=== PATIENT | female | born 1960 | race Caucasian/White ===

== ENCOUNTER 2020-11-19 08:03 | Outpatient (CLI) | payer OTHER, SELFPAY ==
--- NOTE | ~2020-11-19 | XR_ITS ---
EXAMINATION: XR chest 2V DATE: 11/19/2020 08:26 INDICATION: Epigastric abdominal pain. TECHNIQUE: Frontal and lateral views of the chest were obtained. COMPARISON: None. FINDINGS: Calcified pulmonary nodules are consistent with old granulomatous disease. No pleural effus ion or pneumothorax. The heart size is normal. IMPRESSION: 1. No acute cardiopulmonary disease. Reviewed, dictated and finalized at location A.
== END 2020-11-19 08:04 | disposition home or self-care (01) ==
PROVIDERS: PCP Family Medicine; Visit Provider Physician Assistant
DX: R10.13 Epigastric pain (principal); R10.9 Unspecified abdominal pain
CPT/HCPCS: 71046

== ENCOUNTER 2020-11-25 07:11 | Outpatient (CLI) | payer OTHER, SELFPAY ==
--- NOTE | ~2020-11-25 | US_ITS ---
US abdomen complete DATE: 11/25/2020 07:50 INDICATION: Epigastric abdominal pain. Gastroesophageal reflux. TECHNIQUE: Real-time imaging and Doppler analysis COMPARISON: None FINDINGS: No gallstones are evident. No gallbladder wall thickening. Negative sonographic Vang's si gn. No hepatic space-occupying mass lesion is evident. Normal hepatopedal portal venous flow direction. The pancreas is obscured. No renal mass lesion or hydronephrosis. The right kidney measures approximately 12.6 cm length, left kidney 13 cm. There is suggestion of an approximately 9 mm left renal calculus. Consider noncontrast CT abdomen examination for confirmation. Normal splenic size. Normal caliber of the abdominal aorta. Inferior vena cava is patent. IMPRESSION: Probable left renal calculus; consider noncontrast CT abdomen examination for confirmatio n The pancreas is obscured by bowel gas and not evaluated. Otherwise unremarkable examination Reviewed, dictated and finalized at Location A. Reviewed, dictated and finalized at location A. IMPRESSION: Probable left renal calculus; consider noncontrast CT abdomen exami [facility] for confirmation The pancreas is obscured by bowel gas and not evaluated. Otherwise unremarkable examination
== END 2020-11-25 07:12 | disposition home or self-care (01) ==
PROVIDERS: PCP Family Medicine; Visit Provider Physician Assistant
DX: R10.13 Epigastric pain (principal); K21.9 Gastro-esophageal reflux disease without esophagitis
CPT/HCPCS: 76700

== ENCOUNTER → 2021-10-08 13:41 | Outpatient (CLI) | payer OTHER, SELFPAY ==
--- NOTE | ~2021-10-08 | MM_ITS ---
EXAMINATION: MM screening [facility] w terell HISTORY: Screening mammogram, family history of breast cancer in her sister. TECHNIQUE: Craniocaudal and mediolateral oblique 3-D tomosynthesis images were obtained and synthetic 2-D images were generated. CAD analysis was submitted and interpreted. COMPARISON: 04/24/2018 BREAST PARENCHYMAL COMPOSITION: There are scattered areas of fibroglandular density. FINDINGS: Scattered benign-appearing calcifications are present. There is no evidence of suspicious m ass, calcification, or architectural distortion to suggest malignancy in either breast. There has bee n no suspicious interval change. IMPRESSION: 1. No mammographic evidence of malignancy. 2. Recommend routine screening mammography in one year. BI-RADS Category 2: Benign finding(s). Reviewed, dictated and finalized at location A. THCARE PROJECT MANAGER
== END ==
PROVIDERS: PCP Family Medicine; Visit Provider Family Medicine
DX: Z12.31 Encounter for screening mammogram for malignant neoplasm of breast (principal)
CPT/HCPCS: 77063; 77067

== ENCOUNTER → 2023-04-07 10:05 | Outpatient (CLI) | payer OTHER, SELFPAY ==
--- NOTE | ~2023-04-07 | MM_ITS ---
EXAMINATION: MM screening [facility] w terell HISTORY: Screening mammogram, family history of breast cancer in her sister. TECHNIQUE: Craniocaudal and mediolateral oblique 3-D tomosynthesis images were obtained and synthetic 2-D images were generated. CAD analysis was submitted and interpreted. COMPARISON: 10/08/2021, 04/24/2018 BREAST PARENCHYMAL COMPOSITION: There are scattered areas of fibroglandular density. FINDINGS: Scattered benign-appearing calcifications are present. No suspicious mass, calcification, o r architectural distortion are identified in either breast to suggest malignancy. There has been no s uspicious interval change. IMPRESSION: 1. No mammographic evidence of malignancy. 2. Recommend routine screening mammography in one year. BI-RADS Category 2: Benign finding(s). Reviewed, dictated and finalized at location B.
== END ==
PROVIDERS: PCP Nurse Practitioner Gerontology; Visit Provider Nurse Practitioner Gerontology
DX: Z12.31 Encounter for screening mammogram for malignant neoplasm of breast (principal)
CPT/HCPCS: 77063; 77067

== ENCOUNTER 2023-04-21 07:29 | Outpatient (CLI) | payer OTHER, SELFPAY ==
--- NOTE | 2023-04-21 07:48 | ECHO_ITS ---
Patient Info Name: Emmy Kee Age: 62 years : 1960 Gender: Female Ht: 63 in Wt: 195 lbs BSA: 2.02 m2 HR: 50 bpm BP: 160 / 77 mmHg Technical Quality: Fair Exam Date: 04/21/2023 7:57 AM Exam Location: [facility] Patient Status: Outpatient Admit Date: 04/21/2023 Staff Ordering Physician: Lewis Saucedo DO Dye Boarding Machine Operator: Jammie Garcia RDCS Attending Provider: Lewis Saucedo DO Referring Physician: Lewis KNAPP; Exam Type: CA echo doppler color flow Study Info Indications I35.0 - Nonrheumatic aortic (valve) stenosis Complete two-dimensional, color flow and Doppler transthoracic echocardiogram is performed. Summary 1. Complete two-dimensional, color flow and Doppler transthoracic echocardiogram is performed. 2. Left ventricular chamber dimension is normal. 3. Left ventricular systolic function is normal, estimated at 60-65%. 4. The left ventricular diastolic function is grade I diastolic dysfunction. 5. E/e' 14 is mildly elevated. 6. Global longitudinal strain is normal at -19.3%. 7. Left atrial chamber dimension is moderately enlarged. 8. Right atrial chamber dimension is mildly enlarged. 9. There is mild aortic valve sclerosis. 10. There is mild mitral valve regurgitation. 11. There is mild tricuspid valve regurgitation. 12. No pulmonary hypertension, estimated pulmonary arterial systolic pressure is 30 mmHg. Left Ventricle E/e' 14 is mildly elevated. Global longitudinal strain is normal at -19.3%. Left ventricular chamber dimension is normal. Left ventricular systolic function is normal, estimated at 60-65%. The left ventricular diastolic function is grade I diastolic dysfunction. Right Ventricle Right ventricular systolic function is normal and with normal TAPSE 3.9 cm. Right ventricular chamber dimension is normal. Left Atria Left atrial chamber dimension is moderately enlarged. Right Atria Right atrial chamber dimension is mildly enlarged. Aortic Valve The aortic valve is trileaflet. There is mild aortic valve sclerosis. There is no aortic valve stenosis. There is no aortic valve regurgitation. Pulmonic Valve There is no pulmonic regurgitation. Mitral Valve There is no mitral valve stenosis. There is mild mitral valve regurgitation. Tricuspid Valve There is mild tricuspid valve regurgitation. No pulmonary hypertension, estimated pulmonary arterial systolic pressure is 30 mmHg. Pericardium/Pleural There is no pericardial effusion. Inferior Vena Cava Normal inferior vena cava with >50% collapse upon inspiration consistent with normal right atrial pressure, 5 mmHg. Aorta The aortic root size at the sinus of Valsalva is normal. Left Ventricular Outflow Tract Name Value Normal LVOT 2D LVOT Diameter 2.0 cm LVOT Doppler LVOT Peak Gradient 6 mmHg LVOT Mean Gradient 4 mmHg LVOT VTI 33 cm LVOT VTI/AV VTI Ratio 0.7 LVOT Stroke Volume 103 ml LVOT CO 4.5 l/min LVOT CI 2.2 l/min/m2 Pulmonic Valve
== END 2023-04-21 07:30 | disposition home or self-care (01) ==
PROVIDERS: PCP Nurse Practitioner Gerontology; Visit Provider Internal Medicine Cardiovascular Disease
DX: I35.1 Nonrheumatic aortic (valve) insufficiency (principal); I36.1 Nonrheumatic tricuspid (valve) insufficiency; I34.0 Nonrheumatic mitral (valve) insufficiency
CPT/HCPCS: 93306

== ENCOUNTER 2024-04-16 13:09 | Outpatient (CLI) | payer OTHER, SELFPAY ==
--- NOTE | 2024-04-16 13:21 | ECHO_ITS ---
Patient Info Name: Emmy Kee Age: 63 years : 1960 Gender: Female Ht: 63 in Wt: 210 lbs BSA: 2.10 m2 HR: 55 bpm BP: 135 / 71 mmHg Technical Quality: Fair Exam Date: 04/16/2024 1:45 PM Exam Location: Echo Lab Patient Status: Outpatient Admit Date: 04/16/2024 Staff Ordering Physician: Lewis Saucedo DO Oil Filters Inspector: Jammie Garcia RDCS Attending Provider: Lewis Saucedo DO Referring Physician: Lewis KNAPP; Exam Type: CA echo doppler color flow Study Info Indications I35.0 - Nonrheumatic aortic (valve) stenosis Complete two-dimensional, color flow and Doppler transthoracic echocardiogram is performed. Strain analysis performed. Summary 1. Complete two-dimensional, color flow and Doppler transthoracic echocardiogram is performed. 2. Left ventricular chamber dimension is normal. 3. Left ventricular systolic function is normal, estimated at 65-70%. 4. The left ventricular diastolic function is grade I diastolic dysfunction. 5. E/e' 9 is minimally elevated. 6. Global longitudinal strain is normal at -19.5%. 7. Left atrial chamber dimension is moderately enlarged. 8. There is mild aortic valve sclerosis. 9. There is mild tricuspid valve regurgitation. 10. No pulmonary hypertension, estimated pulmonary arterial systolic pressure is 37 mmHg. Left Ventricle E/e' 9 is minimally elevated. Global longitudinal strain is normal at -19.5%. Left ventricular chamber dimension is normal. Left ventricular systolic function is normal, estimated at 65-70%. The left ventricular diastolic function is grade I diastolic dysfunction. Right Ventricle Right ventricular systolic function is normal and with normal TAPSE 3.4 cm. Right ventricular chamber dimension is normal. Left Atria Left atrial chamber dimension is moderately enlarged. Right Atria Right atrial chamber dimension is normal. Aortic Valve The aortic valve is trileaflet. There is mild aortic valve sclerosis. There is no aortic valve stenosis. There is no aortic valve regurgitation. Pulmonic Valve There is no pulmonic regurgitation. Mitral Valve There is no mitral valve stenosis. There is no mitral valve regurgitation. Tricuspid Valve There is mild tricuspid valve regurgitation. No pulmonary hypertension, estimated pulmonary arterial systolic pressure is 37 mmHg. Pericardium/Pleural There is no pericardial effusion. Inferior Vena Cava Normal inferior vena cava with >50% collapse upon inspiration consistent with normal right atrial pressure, 5 mmHg. Aorta The aortic root size at the sinus of Valsalva is normal. Left Ventricular Outflow Tract Name Value Normal LVOT 2D LVOT Diameter 2.0 cm LVOT Doppler LVOT Peak Gradient 6 mmHg LVOT Mean Gradient 4 mmHg LVOT VTI 33 cm LVOT VTI/AV VTI Ratio 0.9 LVOT Stroke Volume 102 ml LVOT CO 5.4 l/min LVOT CI 2.6 l/min/m2 Pulmonic Valve Name Value Normal
== END 2024-04-16 13:10 | disposition home or self-care (01) ==
LOC: ANHCARD 13:13
PROVIDERS: PCP Family Medicine; Visit Provider Internal Medicine Cardiovascular Disease
DX: I35.0 Nonrheumatic aortic (valve) stenosis (principal); I36.1 Nonrheumatic tricuspid (valve) insufficiency
CPT/HCPCS: 93306

== ENCOUNTER 2024-08-02 10:33 | Outpatient (CLI) | payer OTHER, SELFPAY ==
--- NOTE | ~2024-08-02 | MM_ITS ---
EXAMINATION: MM screening [facility] BI w terell HISTORY: Screening TECHNIQUE: Craniocaudal and mediolateral oblique 3-D tomosynthesis images were obtained and synthetic 2-D images were generated. CAD analysis was submitted and interpreted. COMPARISON: 04/07/2023 and dating back to 04/24/2018 BREAST PARENCHYMAL COMPOSITION: There are scattered areas of fibroglandular density. FINDINGS: Punctate and bulky calcifications are detected bilaterally, stable and benign in appearance . Stable intramammary lymph node within the upper outer quadrant of right breast. Stable parenchymal pattern without suspicious microcalcifications, architectural distortion, discrete masses or significant asymmetry. IMPRESSION: 1. No mammographic evidence of malignancy. 2. Recommend routine screening mammography in one year. BI-RADS Category 2: Benign finding(s). Reviewed, dictated and finalized at location A. TRONIC DEVICE MONITOR
== END 2024-08-02 10:34 | disposition home or self-care (01) ==
LOC: MICIMG 10:33
PROVIDERS: PCP Family Medicine; Visit Provider Family Medicine
DX: Z12.31 Encounter for screening mammogram for malignant neoplasm of breast (principal)
CPT/HCPCS: 77063; 77067

== ENCOUNTER 2024-12-10 08:14 | Outpatient (CLI) | payer OTHER, SELFPAY ==
--- NOTE | 2024-12-11 18:07 | P.SLEEP_ITS ---
Sleep Study - Home Unattended Date of Study: 12/10/24 Ordering Provider: ANNMARIE Adams Interpreting Provider: Paige Bull MD Home Sleep Study Type: Watch PAT Height: 1.57 m Weight: 97.069 kg Body Mass Index: 39.1 Neck Circumference (inches): 15.5 [place]: 10 Reason for Sleep Study Non restorative sleep, daytime fatigue, known obstructive sleep apnea since 2005 * 08/18/2005, split night study, AHI 96.2, complete resolution of events on CPAP 20 cm Sleep History Emmy Kee is a 64-year-old female who was diagnosed with obstructive sleep apnea in 2005, well managed on CPAP 20 cm which was her initial pressure during the split night study. She was using her 2nd CPAP machine when it broke about 6 months ago so she has not been treated since then. She reports feeling tired during the day, and she does not feel refreshed on waking. She has an urge to fall asleep during the day, however she does not experience drowsy driving. She has loud snoring, and she has been told that she stops breathing while sleeping. She does not choke or gasp in her sleep but she does have difficulty breathing when she is on her back. She wakes with a sore throat and a dry mouth. She does not have nocturnal heartburn. She does not wake at night to urinate. She was previously diagnosed with severe obstructive sleep apnea in 2005 and she has hypertension. Although she is able to fall asleep, she has difficulty remaining asleep. She wakes up earlier in the morning than desired. She does not use any sleep aids. She does not feel anxious about her sleep. She denies muscle weakness with strong emotion, feeling paralyzed on falling asleep or upon awakening, she denies vivid dreamlike scenes upon waking or falling asleep and she does not dream during daytime naps. She does not grind her teeth or clench her jaws. She does not kick excessively at night or have uncomfortable restless feelings in her legs. She does not act out her dreams. Habits: Tobacco: never Caffein: 1-2 cups daily Alcohol: never Recreational substances: never PMFSH Past Medical History Medical History MVP (mitral valve prolapse) Mixed hyperlipidemia Hyperthyroidism Vitamin D deficiency SERA on CPAP Morbid (severe) obesity due to excess calories IFG (impaired fasting glucose) Ganglion cyst of finger of right hand Essential (primary) hypertension Dependence on other enabling machines and devices Acquired hypothyroidism Allergic rhinitis Obesity, morbid, BMI 40.0-49.9 Acid reflux Epigastric pain Eczema Breast cancer screening Alopecia Arthritis Hyperthyroidism Mixed hyperlipidemia Benign reactive hypertension Surgical History Surgical History H/O section Hx of total knee arthroplasty Family History Family History Sibling Family history of ulcerative colitis Family history of malignant neoplasm of breast Social History Social History Social History: Smoking status: Never smoker Second hand tobacco smoke exposure: No Alcohol intake: never Substance use: never Substance use type: does not use Do You Feel Safe in your Home?: Yes Lack of Transportation: No Lack of Food: Never True Current Housing: I Have Housing Concerned About Future Housing: No Difficulty Paying Gas/Electric Bills: No Difficulty Paying for Meds: No Currently Unemployed: No Education: Don't Know Difficulty w/ Childcare or Family Care: No Living arrangements: with family Additional living arrangements comments: pt son lives with her Occupation/Education: occupation 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 Gender identity (if verbalized by the patient): Female Sexual Orientation (if Verbalized by the Patient): Straight or Heterosexual Medications Home Medications ?Medication ?Instructions ?Recorded ?Confirmed ?Type aspirin 81 mg tablet,delayed 81 mg PO DAILY 09/17/19 11/15/24 History release (Adult Low Dose Aspirin) multivitamin 1 tablet PO DAILY 09/17/19 11/15/24 History azelastine 137 mcg (0.1 %) nasal 137 mcg (0.137 mL) intranasal Q12H 07/21/23 11/15/24 Rx spray #30 mL fluticasone propionate 50 1 spray intranasal BID #18 mL 07/21/23 11/15/24 Rx mcg/actuation nasal spray,suspension omeprazole 20 mg tablet,delayed 20 mg PO DAILY #90 tabs 02/16/24 11/15/24 Rx release amlodipine 5 mg tablet See Rx Instructions .Route 08/13/24 11/15/24 Rx .COMPLEX #90 tabs rosuvastatin 10 mg tablet See Rx Instructions .Route 09/10/24 11/15/24 Rx .COMPLEX #90 tabs clobetasol 0.05 % topical cream 1 applic topical DAILY #30 grams 11/15/24 11/15/24 Rx atenolol 50 mg tablet See Rx Instructions .Route 12/06/24 Rx .COMPLEX #90 tabs Sleep Procedure The sleep study was completed using [employer] Multi[employer] a technically adequate device with seven channels: peripheral arterial tone, actigraphy, body position, snore, respiratory movement, pulse oximetry, sleep staging, and heart rate. Prior to using the device, the patient received verbal and written instructions for its application and was provided with the help desk phone number for additional telephonic instruction with 24-hour availability of qualified personnel to answer questions. Sleep Architecture The total recording time is 8 hrs, 50 min. The total sleep time is 7 hrs, 2 min. Sleep latency is 18 minutes. REM latency is 149 minutes. The patient had 23 episodes of waking. Sleep architecture shows 8.1% deep sleep, 78.8% light sleep, and 13.2% stage REM. The patient spent 14.0% of total sleep time in the supine position. Sleep efficiency was 79%. Respiratory Analysis The overall AHI (pAHI 3%:) is 37.7. The overall apnea hypopnea index (pAHI 4%) is 17.7. The central AHI is 0.9. The AHI was 41.2 in NREM and 15.2 in REM sleep. The AHI was 52.2 in Supine and 35.5 in Non-supine sleep. Percent of [place] respirations is 0%. Oximetry Data The oxygen desaturation index (BREEZY 4%:) is 17.7. The mean saturation is 93%, and the lowest saturation is 85%. Time spent with saturation < 88% is 0.7 minutes. Snoring Profile Snoring average intensity is 49 dB. The patient snored above 45 decibels for 201.0 minutes, 47.6% of sleep time. Cardiac Profile The average pulse rate is 47 beats per minutes. The lowest pulse rate is 37 bpm. The highest pulse rate is 84 bpm. Cardiac Rhythm Analysis in Sleep did not show suspected atrial fibrillation. ( Assessment and Plan Assessment and Plan (1) SERA (obstructive sleep apnea): Code(s): G47.33 - Obstructive sleep apnea (adult) (pediatric) Status: Acute Assessment and Plan: This home sleep test using WatchPat on 12/10/2024 shows severe obstructive sleep apnea using a 3% criteria, AHI 37.7 and an apnea-hypopnea index of 17.7 which is moderately severe using a 4% desaturation criteria. She desaturated to 85%, spent 0.7 minutes below 88% and had loud frequent snoring during the night. This patient meets criteria to be treated for moderate to severe obstructive sleep apnea. She has a known history of this diagnosis since 2005 and indicates that she was on treatment with CPAP 20 cm until her machine broke 6 months ago. I recommend that this patient be prescribed Resmed AirSense 11 AutoPAP 5-15 cm H2 O, CPAP mask/filters/tubing and humidifier chamber. This should be used with all episodes of sleep. Compliance should be reviewed within 31-90 days of starting therapy for usage greater than 4 hours per night greater than 70% of the nights. The patient should be asked about symptoms such as excessive daytime sleepiness, quality of sleep, decreased nocturia, increased mental functioning such as me tash, mood, and concentration. If the patient does not improve with Auto-PAP, I recommend a full night titration in the sleep lab with a sleep aid to use, if needed, to initiate and maintain sleep during testing. Consider prescribing Ambien 5 mg to 10 mg or Lunesta 2 mg to 3 mg. The patient should not take a nap on the day of the study. BMI is 39. Weight management is advised. Clinical data suggests that weight loss of 10% can reduce the severity of respiratory events and snoring and improve AHI by as much as 25%. Data The data obtained during this sleep study is adequate for interpretation. Certification This sleep study has been reviewed by a board certified sleep medicine physician.
[2024-12-12 20:02] VITALS: BMI 39.1
== END 2024-12-11 14:26 | disposition home or self-care (01) ==
LOC: ANHCSM 08:16
PROVIDERS: PCP Family Medicine; Visit Provider Physician Assistant
DX: G47.33 Obstructive sleep apnea (adult) (pediatric) (principal)
CPT/HCPCS: 95800

== ENCOUNTER 2025-03-10 01:32 | Day surgery (SDC) | payer OTHER, SELFPAY ==
[2025-02-27 14:34] VITALS: BMI 39.1
--- NOTE | 2025-03-10 07:28 | WPDANESEPPF ---
Anes - Initial Pre Proc Eval Procedure: Operation Date: 03/10/25 09:30 Proposed Procedures p Screening Colonoscopy - Manuel Alfred MD Date/Time: 03/10/25 07:28 Surgeon: Manuel Alfred MD Pre Op Diagnosis: Screening Patient Data Age: 64 Gender: F Height: 1.57 m Weight: 97 kg Allergies Allergy/AdvReac Type Severity Reaction Status Date / Time No Known Allergies Allergy Verified 03/10/25 08:28 PERFUMES, CANDLES, STRONG Allergy Severe NASAL Uncoded 03/10/25 08:28 SMELLS CONGESTION, STUFFINESS Home Medications ?Medication ?Instructions ?Recorded ?Confirmed ?Type aspirin 81 mg tablet,delayed 81 mg PO DAILY 09/17/19 02/28/25 History release (Adult Low Dose Aspirin) multivitamin 1 tablet PO DAILY 09/17/19 02/28/25 History azelastine 137 mcg (0.1 %) nasal 137 mcg (0.137 mL) intranasal Q12H 07/21/23 02/28/25 Rx spray #30 mL fluticasone propionate 50 1 spray intranasal BID #18 mL 07/21/23 02/28/25 Rx mcg/actuation nasal spray,suspension omeprazole 20 mg tablet,delayed 20 mg PO DAILY #90 tabs 02/16/24 02/28/25 Rx release clobetasol 0.05 % topical cream 1 applic topical DAILY #30 grams 11/15/24 02/28/25 Rx atenolol 50 mg tablet See Rx Instructions .Route 12/06/24 03/10/25 Rx .COMPLEX #90 tabs amlodipine 5 mg tablet See Rx Instructions .Route 02/07/25 03/10/25 Rx .COMPLEX #90 tabs rosuvastatin 10 mg tablet See Rx Instructions .Route 03/04/25 03/10/25 Rx .COMPLEX #90 tabs Patient hx anesthesia problems: none Family hx anesthesia problems: none Results Review: All pre-operative results and documents have been reviewed as part of the pre-operative evaluation. [facility] Past Medical History Medical History MVP (mitral valve prolapse) Mixed hyperlipidemia Hyperthyroidism Vitamin D deficiency SERA on CPAP Morbid (severe) obesity due to excess calories IFG (impaired fasting glucose) Ganglion cyst of finger of right hand Essential (primary) hypertension Dependence on other enabling machines and devices Acquired hypothyroidism Allergic rhinitis Obesity, morbid, BMI 40.0-49.9 Acid reflux Epigastric pain Eczema Breast cancer screening Alopecia Arthritis Hyperthyroidism Mixed hyperlipidemia Benign reactive hypertension Surgical History Surgical History H/O section Hx of total knee arthroplasty Family History Family History Sibling Family history of ulcerative colitis Family history of malignant neoplasm of breast Social History Social History Social History: Smoking status: Never smoker Second hand tobacco smoke exposure: No Alcohol intake: never Substance use: never Substance use type: does not use Do You Feel Safe in your Home?: Yes Lack of Transportation: No Lack of Food: Never True Current Housing: I Have Housing Concerned About Future Housing: No Difficulty Paying Gas/Electric Bills: No Difficulty Paying for Meds: No Currently Unemployed: No Education: Don't Know Difficulty w/ Childcare or Family Care: No Living arrangements: with family Additional living arrangements comments: pt son lives with her Occupation/Education: occupation 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 Gender identity (if verbalized by the patient): Female Sexual Orientation (if Verbalized by the Patient): Straight or Heterosexual Spiritual care concerns: No Anes - Eval Final PreProcedure Day of Procedure 03/10/25 07:28 Patient weight: obese Heart: regular rate and rhythm Lungs: clear to auscultation Airway: Mallampati scale class II Neurological: alert and oriented Last oral intake: >/= 8 hours ASA classification: III Emergent: no Anesthetic plan: proceed Anesthesia type and monitoring: general GIVS and standard monitoring Results Review: All pre-operative results and documents have been reviewed as part of the pre-operative evaluation. Informed Consent: The patient's anesthetic plan and its attendant risks and benefits were discussed with the patient/family/POA. Questions were solicited and answers provided to the satisfaction of the patient/family/POA.
[2025-03-10 08:42] VITALS: BP 150/57; PULSE 56; RESP 18; TEMP 36.2; O2SAT 98
[2025-03-10] MEDS: LACTATED RINGERS 1,000 ML 150 ML IV CONT (08:42)
--- NOTE | 2025-03-10 08:54 | PM.HPGS ---
History of Present Illness History of Present Illness Consent: Risks, benefits, and alternatives have been discussed and questions answered. Patient agrees to proceed with procedure. Chief complaint: Screening Narrative: Emmy Hicks is a 64 year old female here for screening colonoscopy Review of Systems Review of Systems: All systems reviewed & are unremarkable except as noted in HPI and below PMFSH Past Medical History Medical History (Updated 03/10/25 @ 09:08 by Manuel Alfred MD) Colon cancer screening MVP (mitral valve prolapse) Mixed hyperlipidemia Hyperthyroidism Vitamin D deficiency SERA on CPAP Morbid (severe) obesity due to excess calories IFG (impaired fasting glucose) Ganglion cyst of finger of right hand Essential (primary) hypertension Dependence on other enabling machines and devices Acquired hypothyroidism Allergic rhinitis Obesity, morbid, BMI 40.0-49.9 Acid reflux Epigastric pain Eczema Breast cancer screening Alopecia Arthritis Hyperthyroidism Mixed hyperlipidemia Benign reactive hypertension Surgical History Surgical History H/O section Hx of total knee arthroplasty Family History Family History Sibling Family history of ulcerative colitis Family history of malignant neoplasm of breast Social History Social History Social History: Smoking status: Never smoker Second hand tobacco smoke exposure: No Alcohol intake: never Substance use: never Substance use type: does not use Do You Feel Safe in your Home?: Yes Lack of Transportation: No Lack of Food: Never True Current Housing: I Have Housing Concerned About Future Housing: No Difficulty Paying Gas/Electric Bills: No Difficulty Paying for Meds: No Currently Unemployed: No Education: Don't Know Difficulty w/ Childcare or Family Care: No Living arrangements: with family Additional living arrangements comments: pt son lives with her Occupation/Education: occupation Additional occupation/education comments: Assembly Machine [employer] Gender identity (if verbalized by the patient): Female Sexual Orientation (if Verbalized by the Patient): Straight or Heterosexual Spiritual care concerns: No Meds Home Medications and Allergies Home Medications ?Medication ?Instructions ?Recorded ?Confirmed ?Type aspirin 81 mg tablet,delayed 81 mg PO DAILY 09/17/19 02/28/25 History release (Adult Low Dose Aspirin) multivitamin 1 tablet PO DAILY 09/17/19 02/28/25 History azelastine 137 mcg (0.1 %) nasal 137 mcg (0.137 mL) intranasal Q12H 07/21/23 02/28/25 Rx spray #30 mL fluticasone propionate 50 1 spray intranasal BID #18 mL 07/21/23 02/28/25 Rx mcg/actuation nasal spray,suspension omeprazole 20 mg tablet,delayed 20 mg PO DAILY #90 tabs 02/16/24 02/28/25 Rx release clobetasol 0.05 % topical cream 1 applic topical DAILY #30 grams 11/15/24 02/28/25 Rx atenolol 50 mg tablet See Rx Instructions .Route 12/06/24 03/10/25 Rx .COMPLEX #90 tabs amlodipine 5 mg tablet See Rx Instructions .Route 02/07/25 03/10/25 Rx .COMPLEX #90 tabs rosuvastatin 10 mg tablet See Rx Instructions .Route 03/04/25 03/10/25 Rx .COMPLEX #90 tabs Allergies Allergy/AdvReac Type Severity Reaction Status Date / Time No Known Allergies Allergy Verified 03/10/25 08:28 PERFUMES, CANDLES, STRONG Allergy Severe NASAL Uncoded 03/10/25 08:28 SMELLS CONGESTION, STUFFINESS Vital Signs Vital Signs - 24 hr 03/10/25 08:42 Temperature 97.2 F L Pulse Rate 56 L Respiratory Rate 18 Blood Pressure 150/57 H Pulse Oximetry 98 Oxygen Delivery Room Air Exam Const: General: comfortable and no acute distress HENMT: Face/Nose/Sinus: Normal nares present Eyes: General: appearance normal, both eyes and all related structures Neck: Neck: no JVD Resp: Auscultation: clear to auscultation bilaterally Cardio: Rate: regular rate Rhythm: regular rhythm GI: Inspection: non-distended GI Palp: Yes Soft to palpation Skin: General skin exam: normal color Neuro: Speech: normal speech Extrem: General: normal to inspection Psych: Mental Status: mental status grossly normal Assessment and Plan Assessment and plan (1) Colon cancer screening: Code(s): Z12.11 - Encounter for screening for malignant neoplasm of colon Status: Acute Assessment and Plan: colonoscopy
[2025-03-10 09:10] VITALS: BP 101/46; PULSE 45; RESP 21; O2SAT 96
[2025-03-10 09:20] VITALS: BP 101/55; PULSE 51; RESP 23; O2SAT 99
[2025-03-10 09:30] VITALS: BP 112/63; PULSE 45; RESP 19; O2SAT 97
== END 2025-03-10 09:36 | disposition home or self-care (01) ==
PROVIDERS: PCP Family Medicine; Referring Provider Physician Assistant; Visit Provider Internal Medicine Gastroenterology
PROC: 0DJD8ZZ Inspection of Lower Intestinal Tract, Via Natural or Artificial Opening Endoscopic (ICD-10-PCS; CPT 45378; principal; 2025-03-10 09:30)
DX: Z12.11 Encounter for screening for malignant neoplasm of colon (principal); K64.8 Other hemorrhoids; I10 Essential (primary) hypertension; E03.9 Hypothyroidism, unspecified; E78.2 Mixed hyperlipidemia; E55.9 Vitamin D deficiency, unspecified; G47.33 Obstructive sleep apnea (adult) (pediatric); K21.9 Gastro-esophageal reflux disease without esophagitis; E05.90 Thyrotoxicosis, unspecified without thyrotoxic crisis or storm; L65.9 Nonscarring hair loss, unspecified; M19.90 Unspecified osteoarthritis, unspecified site; E66.9 Obesity, unspecified; Z68.38 Body mass index [BMI] 38.0-38.9, adult; Z79.82 Long term (current) use of aspirin; Z99.89 Dependence on other enabling machines and devices; Z98.890 Other specified postprocedural states; Z86.79 Personal history of other diseases of the circulatory system; Z80.3 Family history of malignant neoplasm of breast
CPT/HCPCS: 45378; J2003; J2704; J7120

== ENCOUNTER 2025-05-23 09:00 | Outpatient (CLI) | payer OTHER, SELFPAY ==
--- NOTE | ~2025-05-23 | XR_ITS ---
EXAMINATION: XR shoulder LT min 2V, 05/23/2025 9:10 CDT HISTORY: M25.512 - Pain in left shoulder COMPARISON: No comparisons available. Findings: No acute fracture or malalignment. Moderate degenerative changes Soft tissues unremarkable. Impression: No acute fracture or malalignment. Reviewed, dictated and finalized at location P. Impression: No acute fracture or malalignment.
== END 2025-05-23 09:01 | disposition home or self-care (01) ==
PROVIDERS: PCP Family Medicine; Visit Provider Physician Assistant
DX: M25.512 Pain in left shoulder (principal)
CPT/HCPCS: 73030

== ENCOUNTER 2025-08-01 08:50 | Outpatient (CLI) | payer OTHER, SELFPAY ==
--- NOTE | ~2025-08-01 | DEXA_ITS ---
Bone Density Report Name: CHARISSE SHORT Age: 65 Sex: Female Ethnicity: White Date of : 1960 Indication: postmenopausal; screening for osteoporosis; height loss; Referring Provider: HARSH ANTOINE Study: Bone densitometry was performed. Exam Date: August 01, 2025 Accession number: [id number] Bone Density: Region BMD T-score Z-score Classification AP Spine(L1-L4) 1.014 -0.3 1.6 Normal Femoral Neck (Left) 0.578 -2.4 -0.8 Osteopenia Total Hip (Left) 0.813 -1.1 0.3 Osteopenia Femoral Neck (Right) 0.712 -1.2 0.4 Osteopenia Total Hip (Right) 0.913 -0.2 1.1 Normal Total Hip Mean 0.863 -0.7 0.7 Normal World Health Organization criteria for BMD impression classify patients as: Normal (T-score at or above -1.0), Osteopenia (T-score between -1.0 and -2.5), or Osteoporosis (T-score at or below -2.5). 10-year Fracture Risk(1): Major Osteoporotic Fracture 11% Hip Fracture 2.1% Reported Risk Factors: [place] (), Neck BMD=0.578, BMI=41.0 (1) FRAX(R) Version 3.08. Fracture probability calculated for an untreated patient. Fracture probability may be lower if the patient has received treatment. Clinical Information Provided by Patient: Has used the following medications: Vitamin D, Calcium Patient maximum height was 63 Menopause Age: 53 No regular weight bearing exercise Does not regularly consume dairy products Drinks caffeinated beverages Onset of menses at age 11 Number of children 2 Impression: The patient has low bone mass, based on the Left Femoral Neck T-score. The patient has an estimated ten-year risk of hip fracture of 2.1% and an estimated ten-year risk of major fracture of 11%, based on the WHO FRAX algorithm. Discussion: BONE DENSITY IS LOW AT ONE OR MORE SKELETAL SITES. This patient's lowest T-score is low at one or more skeletal sites. It meets the World Health Organization's (WHO) criteria for ?low bone mass? (T-score between -1.0 and -2.5). The patient's 10-year risk of fracture as calculated by FRAX is less than the threshold where pharmacological therapy is recommended by the National Osteoporosis Foundation (NOF). However, all treatment decisions require clinical judgment and consideration of individual patient factors, including patient preferences, comorbidities, previous drug use, risk factors not captured in the FRAX model (e.g., frailty, falls, vitamin D deficiency, increased bone turnover, interval significant decline in bone density) and possible under or overestimation of fracture risk by FRAX. The patient should follow a healthful lifestyle (good nutrition with adequate calcium and vitamin D, and appropriate weight-bearing exercise). Follow-Up: Consider repeating this study in 2 to 3 years to reassess this patient's status, or sooner if there is some new clinical indication. Reported by: TACOS on 08/01/2025 9:08:00 AM. Reviewed, dictated and finalized at location A.
== END 2025-08-01 08:51 | disposition home or self-care (01) ==
LOC: MICIMG 08:50
PROVIDERS: PCP Family Medicine; Visit Provider Physician Assistant
DX: Z78.0 Asymptomatic menopausal state (principal); M85.852 Other specified disorders of bone density and structure, left thigh; M85.851 Other specified disorders of bone density and structure, right thigh
CPT/HCPCS: 77080

== ENCOUNTER 2025-08-06 08:24 | Outpatient (CLI) | payer OTHER, SELFPAY ==
--- NOTE | ~2025-08-06 | MM_ITS ---
EXAMINATION: MM screening kyler BI w terell HISTORY: Z12.39 - Encounter for other screening for malignant neop... TECHNIQUE: Craniocaudal and mediolateral oblique 3-D tomosynthesis images were obtained and synthetic 2-D images were generated. CAD analysis was submitted and interpreted. COMPARISON: 2023, 2022, and 2021 BREAST PARENCHYMAL COMPOSITION: There are scattered areas of fibroglandular tissue. FINDINGS: No suspicious masses are seen. There are no suspicious calcifications. No unexplained architectural distortion is seen. There are no skin or nipple abnormalities identified. There is no adenopathy seen on the images submitted. IMPRESSION: No mammographic evidence to suggest malignancy is seen. The patient may return to screening mammography as per ACR guidelines. BI-RADS 1 - Negative. Reviewed, dictated and finalized at location C. [employer]
== END 2025-08-06 08:25 | disposition home or self-care (01) ==
LOC: MICIMG 08:24
PROVIDERS: PCP Family Medicine; Visit Provider Physician Assistant
DX: Z12.31 Encounter for screening mammogram for malignant neoplasm of breast (principal)
CPT/HCPCS: 77063; 77067